=== PATIENT | male | born 1980 | race Caucasian/White ===

== ENCOUNTER 2021-11-24 06:55 | Outpatient (CLI) | payer OTHER ==
--- NOTE | 2021-11-24 07:10 | NUR ---
pt to eu 14 ambulatory with mask on for BOLA. pt changed into gown, reviewed med list with pt. radiology nurse in to do covid swab per protocol, in isolaton at this time.
[2021-11-24] MEDS ORDERED: CELEXA40 MG PO (07:22)
[2021-11-24] MEDS ORDERED: LIPITOR 80MG80 MG PO (07:22)
[2021-11-24] MEDS ORDERED: ASPIRIN E.C. 8181 MG PO (07:23)
[2021-11-24] MEDS ORDERED: AMITRIPTYLINE H10 M1 PO (07:24)
--- NOTE | 2021-11-24 07:37 | NUR ---
Gosia Alexandra RN was notified of positive covid test.
--- NOTE | 2021-11-24 07:50 | NUR ---
informed pt of positive results, called Dr Damon, will be in to talk to pt about procedure and how to procede. Pt will remain on isolation till Dr into see pt.
--- NOTE | 2021-11-24 09:01 | NUR ---
Dr Damon talked with pt, states pt may leave and he will be rescheduled by office in 2-3 weeks, pt escorted out with mask on
== END 2021-11-24 09:00 | disposition home or self-care (01) ==
LOC: COL.RAD 06:55
DX: U07.1 COVID-19 (principal); I63.9 Cerebral infarction, unspecified

== ENCOUNTER 2021-12-31 07:28 | Outpatient (CLI) | payer SELFPAY ==
[~2021-12-31] VITALS: Ht 180.3 cm; Wt 132.5 kg
[~2021-12-31 07:28] MED LIST: AMITRIPTYLINE H10 M1 PO; ASPIRIN E.C. 8181 MG PO; CELEXA40 MG PO; LIPITOR 80MG80 MG PO
[2021-12-31 08:08] LABS: HEMATOCRIT 41.1 % (42.0-52.0); HEMOGLOBIN 13.8 g/dl (13.5-18.0); MEAN CELL VOLUME 93 fl (80.0-100.0); MEAN CORPUSCULAR HEMOGLOBIN 31 pg (27-31); MEAN CORPUSCULAR HGB CONC 34 g/dl (33.0-37.0); PLATELET COUNT 318 K/mm3 (130-400); REDCELL DISTRIBUTION WIDTH-CV 12.7 % (11.5-14.5)
[2021-12-31 08:15] LABS: PROTHROMBIN TIME 11.3 SECONDS (9.7-12.8)
[2021-12-31] MEDS ORDERED: LEXAPRO 10MG10 MG PO (08:17)
[2021-12-31] MEDS ORDERED: DEPAKOTE ER 25250 MG PO (08:18)
[2021-12-31] MEDS ORDERED: UNISOM25 MG PO (08:19)
[2021-12-31] MEDS ORDERED: LUNESTA 1MG TAB1 MG PO (08:19)
[2021-12-31 08:20] VITALS: BP 139/99; PULSE 76
[2021-12-31 08:23] LABS: CALCIUM 8.9 mg/dL (8.4-10.2); CREATININE, serum 0.79 mg/dL (0.72-1.25)
[2021-12-31 10:05] VITALS: BP 117/76; PULSE 77
--- NOTE | 2021-12-31 10:06 | NUR ---
Report from Natalie Malone RN following BOLA procedure. calibration laboratory technician staff and Dr Riojas remain in room with pt to complete loop insert. Pt is awake and speaking with them.
[2021-12-31 10:15] VITALS: BP 121/79; PULSE 89
[2021-12-31 10:30] VITALS: BP 133/92; PULSE 85
--- NOTE | 2021-12-31 10:30 | NUR ---
organic lab worker staff exits room following loop insertion. Pt alert and oriented. Denies complaints. Able to swallow water without issue. Call light in reach.
[2021-12-31 10:45] VITALS: BP 132/91; PULSE 84
[2021-12-31 11:00] VITALS: BP 129/83; PULSE 77
--- NOTE | 2021-12-31 11:15 | NUR ---
DC instructions reviewed with pt. He is expresses understanding. He has tolerated PO fluids without issue. Has refused desire for food. States throat feels scratchy but no pain or trouble swallowing. He is steady in room. INT DC'd with catheter intact. He is assisted out to meet friend, who will be driving him home.
== END 2021-12-31 11:32 | disposition home or self-care (01) ==
LOC: COL.RAD 07:28
PROVIDERS: Internal Medicine Adult Congenital Heart Disease
DX: I63.9 Cerebral infarction, unspecified (principal)
CPT/HCPCS: C1764; J2704